=== PATIENT | female | born 1985 | race Caucasian/White ===

== ENCOUNTER 2022-12-23 18:15 | Emergency (ER) | payer BC, OTHER ==
[2022-12-23] MEDS: Amoxicillin/Clavulanate K 875-125 MG Tab PO ONE (18:50)
[2022-12-23] MEDS: Diphtheria,Pertussis(Acell),Tetanus Vaccine 0.5 ML Syringe IM ONE (18:58)
== END 2022-12-23 19:28 | disposition home or self-care (01) ==
LOC: KA.ED 18:15
DX: S61.451A Open bite of right hand, initial encounter (principal); W54.0XXA Bitten by dog, initial encounter
CPT/HCPCS: 90471; 90715; 99283; 99283-25; A9270-GY